=== PATIENT | female | born 1985 | race Caucasian/White ===

== ENCOUNTER 2019-12-06 17:37 | Emergency (ER) | payer SELFPAY ==
--- NOTE | 2019-12-06 18:37 | ERPHSYRPT ---
- History of Present Illness Time Seen by Provider: 12/06/19 18:15 Source: patient Exam Limitations: no limitations Patient Subjective Stated Complaint: "left side sore throat starting yesterday." Triage Nursing Assessment: aaox3, walked in , afebrile, no cough, lungs clear, resp easy, c/o sore throat and whitish blisters in left side throat since yesterday. Physician History: 34 years old female presented in the ER with chief complaint of left sided sore throat and noticed white spots. Patient report moderate intensity dull aching pain in the throat with swallowing. No fever or chills reported. Denies any cough or shortness of breath. Denies body aches. Timing/Duration: today, sudden Cough Quality/Degree: no cough Possible Cause: no prior episodes Associated Symptoms: sore throat, No fever, No chills, No chest pain/soreness, No cough, No dizziness, No earache, No facial pain, No headache, No muscle ache s, No nasal congestion, No nasal drainage, No sinus infection, No wheezing Allergies/Adverse Reactions: ciprofloxacin [From Cipro] Allergy (Verified 03/19/15 19:00) ciprofloxacin HCl [From Cipro] Allergy (Verified 03/19/15 19:00) nitrofurantoin [From Macrobid] Allergy (Verified 03/19/15 19:00) nitrofurantoin macrocrystalline [From Macrobid] Allergy (Verified 03/19/15 19:00) Penicillins Allergy (Verified 03/19/15 19:00) Sulfa (Sulfonamide Antibiotics) Allergy (Verified 03/19/15 19:00) triamcinolone acetonide [From Kenalog] Allergy (Verified 03/19/15 19:00) Home Medications: No Home Meds [No Home Meds] 1 ea [facility] UD 03/19/15 [History] Hx Tetanus, Diphtheria Vaccination/Date Given: Yes (4 yrs ago) Hx Influenza Vaccination/Date Given: No Hx Pneumococcal Vaccination/Date Given: No Travel Risk - International Travel Have you traveled outside of the country in past 3 weeks: No - Coronavirus Screening Are you exhibiting any of the following symptoms?: No Symptoms: Fever, Cough: New Onset, Shortness of Breath, Vomiting/Diarrhea, Loss of Taste or Smell, Headaches/Body Aches/Fatigue Close contact with a COVID-19 positive Pt in past 14-21 Days: Yes - Review of Systems Constitutional: No Symptoms Eyes: No Symptoms Ears, Nose, & Throat: Throat Pain, Throat Swelling, Painful Swallowing Respiratory: No Symptoms Cardiac: No Symptoms Abdominal/Gastrointestinal: No Symptoms Genitourinary Symptoms: No Symptoms Musculoskeletal: No Symptoms Skin: No Symptoms Neurological: No Symptoms Psychological: No Symptoms Hematologic/Lymphatic: No Symptoms Immunological/Allergic: No Symptoms - Past Medical History Pertinent Past Medical History: Yes Neurological History: No Pertinent History ENT History: No Pertinent History Cardiac History: No Pertinent History Respiratory History: No Pertinent History Endocrine Medical History: No Pertinent History Musculoskeletal History: No Pertinent History GI Medical History: No Pertinent History History: No Pertinent History, Other Psycho-Social History: No Pertinent History Female Reproductive Disorders: No Pertinent History Other Medical History: kidney surgery-age 3-4--reflux - Past Surgical History Past Surgical History: Yes Genitourinary: Other Other Surgical History: KIDNEY SURG FOR REFLUX - Social History Smoking Status: Never smoker Exposure to second hand smoke: No Drug Use: none Patient Lives Alone: No - Female History Hx Last Menstrual Period: 1 month ago Hx Now: No - Nursing Vital Signs Nursing Vital Signs: Initial Vital Signs Temperature 98.0 F 12/06/19 18:00 Pulse Rate 86 12/06/19 18:00 Respiratory Rate 18 12/06/19 18:00 Blood Pressure 160/110 12/06/19 18:00 O2 Sat by Pulse Oximetry 100 12/06/19 18:00 Pain Scale Pain Intensity 4 - Physical Exam General Appearance: no apparent distress, alert Eye Exam: eyes nml inspection Ears, Nose, Throat Exam: pharyngeal erythema, tonsillar exudate (Left) Neck Exam: normal inspection, non-tender, supple, full range of motion Respiratory Exam: normal breath sounds, lungs clear Cardiovascular Exam: regular rate/rhythm, normal heart sounds Extremity Exam: normal inspection Neurologic Exam: alert, oriented x 3, cooperative Skin Exam: normal color Lymphatic Exam: No adenopathy SpO2 Interpretation: normal SpO2: 100 O2 Delivery: Room Air Lab/Rad Data: Laboratory Results 12/06/19 Range/Units 18:10 Group A Strep Antibody NOT DETECTED (NEGATIVE) - Progress Progress: unchanged Air Movement: good Progress Note: 12/06/19 negative strep throat. Possible viral pharyngitis. Recommended supportive care and outpatient follow-up. Blood Culture(s) Obtained: No Antibiotics given: No Counseled pt/family regarding: lab results, diagnosis, need for follow-up - Departure Departure Disposition: Home Clinical Impression: Acute pharyngitis Qualifiers: Pharyngitis/tonsillitis etiology: unspecified etiology Qualified Code(s): J02.9 - Acute pharyngitis, unspecified Condition: Stable Critical Care Time: No Referrals: BRIANDA WOLF MD [Primary Care Provider] - Follow Up with PCP/3 days Instructions: Sore Throat, Adult (DC), Viral Pharyngitis (DC) Additional Instructions: Take Tylenol/ibuprofen as needed. Do warm salt water gargles. Follow-up with primary care for reevaluation. Return to ER for worsening or if develop fever chills etc.
[2019-12-06 19:34] VITALS: BP 145/87; PULSE 76
[2019-12-06 20:40] VITALS: O2SAT 100
== END 2019-12-06 19:38 | disposition home or self-care (01) ==
LOC: ED 17:37
DX: J02.9 Acute pharyngitis, unspecified (principal)
CPT/HCPCS: 87651; 99283